=== PATIENT | male | born 2000 | race Caucasian/White ===

== ENCOUNTER 2020-03-20 15:36 | Emergency (ER) | payer OTHER ==
[~2020-03-20] VITALS: Ht 188 cm; Wt 116.9 kg
[2020-03-20] MEDS ORDERED: IBUPROFEN 800 MG TAB PO ONE (16:30)
--- NOTE | 2020-03-20 16:51 | REP ---
INDICATION: L shoulder pain s/p fall, deformity COMPARISON: None. TECHNIQUE: Three views left shoulder. FINDINGS: No fracture is seen. There is elevation of the distal end of the left clavicle above the acromion consistent with AC joint injury and separation. No other abnormalities are seen. IMPRESSION: No fracture is seen. There is elevation of the distal end of the left clavicle above the acromion consistent with AC joint injury and separation. <Electronically signed by Kp Mays > 03/20/20 0838
[2020-03-20 17:17] VITALS: BP 126/79
== END 2020-03-20 17:34 | disposition home or self-care (01) ==
LOC: M ED 15:36
DX: S46.812A Strain of other muscles, fascia and tendons at shoulder and upper arm level, left arm, initial encounter (principal); V00.321A Fall from snow-skis, initial encounter; Y92.838 Other recreation area as the place of occurrence of the external cause

== ENCOUNTER → 2020-09-11 | Outpatient (REF) | payer OTHER ==
[2020-09-11 19:31] LABS: GC DNA AMPLIFICATION NEGATIVE (NEGATIVE)
== END ==
LOC: M LAB REF 16:44
PROVIDERS: ATTEND Physician Assistant Medical
DX: Z11.3 Encounter for screening for infections with a predominantly sexual mode of transmission (principal)